=== PATIENT | female | born 1935 | race African-American/Black ===

== ENCOUNTER 2017-11-02 15:52 | Emergency (ER) | payer MEDICARE, MEDICAID ==
[~2017-11-02] VITALS: Ht 175.3 cm; Wt 89.4 kg
[~2017-11-02 15:52] MED LIST: AMLODIPINE BESY10 MG ORAL; ASPIR 8181 MG ORAL; ATORVASTATIN CA40 MG ORAL; BUPROPION HCL100 M1 ORAL; CELEXA20 MG ORAL; DONEPEZIL HCL10 M2 ORAL; HYDROCHLOROTHIA25 MG ORAL; METOPROLOL SUCC25 MG ORAL; NAMENDA XR21 MG PO; NAMENDA10 MG ORAL; PRAVASTATIN SOD80 M1 ORAL; RISPERIDONE0.5 MG PO; ZITHROMAX500 MG ORAL; vit d2 PO
[2017-11-02] MEDS ORDERED: Tetanus/Diptheria/Pertussis Vaccine 0.5ml Syr IM ONE (16:15)
--- NOTE | 2017-11-02 16:58 | Diagnostic Imaging Report ---
Indication: Altered mental status Technique: spiral acquisitions obtained through the brain. Angled axial and coronal 5 x 5 mm slices were reconstructed. No IV contrast utilized. Radiation dose was minimized using automated exposure control Total dose length product 1383 mGycm. CTDIvol(s) 70 mGy Comparison: none FINDINGS: No acute hemorrhage or edema. No mass effect or midline shift. There is age-related enlargement of the ventricles and extra axial CSF spaces. There is periventricular deep white matter ischemic change. Normal jenkins-white differentiation. Visualized orbits are unremarkable. There is minimal mucosal disease in the left maxillary sinus. Intact calvarium. Possible empty sella. No significant interim change IMPRESSION: Chronic and age-related changes. Negative for acute intracranial bleed or mass effect Incidental finding of left maxillary sinus disease, possible empty sella The CT scanner at [facility] is accredited by the [employer] and the scans are performed using protocols designed to limit radiation exposure to as low as reasonably achievable to attain images of sufficient resolution adequate for diagnostic evaluation
[2017-11-02] MEDS ORDERED: TYLENOL EXTRA500 MG ORAL (17:09)
[2017-11-02 17:15] VITALS: BP 126/82
--- NOTE | 2017-11-02 17:17 | Emergency Room Report ---
History of Present Illness General Chief Complaint: Head, Face, Neck Trauma Source: Patient, Family Member Present Illness HPI 82-year-old female presents ED status post head injury. Daughter at bedside states that today patient had a mechanical trip and fall hitting her head on the stair railing at home. Occurred approximately 30 minutes prior to arrival. No LOC. There is an abrasion to the top of the scalp. Patient states tetanus is unknown. Patient denies any photophobia or. Denies nausea or vomiting. Denies neck pain. Denies any other injuries. No other aggravating relieving factors. Denies any other associated symptoms Allergies: Coded Allergies: NO KNOWN DRUG ALLERGIES (Unverified Allergy, Unknown, 12/21/14) Patient History Past Medical History: DM, HTN, dementia Pertinent Family History: none Social History: Denies: smoking, alcohol use, drug use Now: No Immunizations: UTD Reviewed Nursing Documentation: PMH: Agreed, PSxH: Agreed Nursing Documentation-PMH Hx Hypertension: Yes Hx Diabetes: Yes - no medications taken for diabetes Hx Cancer: No Hx Gastrointestinal Problems: No Hx Neurological Problems: Yes - Alzheimer's Hx Dementia: Yes Hx Alzheimer's Disease: Yes Review of Systems All Other Systems: negative except mentioned in HPI Physical Exam Vital Signs Date Time Temp Pulse Resp B/P (MAP) Pulse Ox O2 Delivery O2 Flow Rate FiO2 11/02/17 15:58 97.9 70 18 128/84 95 Room Air Sp02 EP Interpretation: reviewed, normal General Appearance: no apparent distress, alert, GCS 15, non-toxic Head: normocephalic, other - abrasion to scalp Eyes: bilateral eye normal inspection, bilateral eye PERRL ENT: hearing grossly normal, normal pharynx, no angioedema, normal voice Neck: full range of motion, supple/symm/no masses Respiratory: chest non-tender, lungs clear, normal breath sounds, speaking full sentences Cardiovascular #1: regular rate, rhythm, no edema Cardiovascular #2: 2+ carotid (R), 2+ carotid (L), 2+ radial (R), 2+ radial (L) , 2+ dorsalis pedis (R), 2+ dorsalis pedis (L) Gastrointestinal: normal bowel sounds, non tender, soft, non-distended, no guarding, no rebound Rectal: deferred Genitourinary: normal inspection, no CVA tenderness Musculoskeletal: back normal, gait/station normal, normal range of motion, non- tender Neurologic: alert, oriented x3, responsive, motor strength/tone normal, sensory intact, speech normal Psychiatric: judgement/insight normal, memory normal, mood/affect normal, no suicidal/homicidal ideation Reflexes: 3+ bicep (R), 3+ bicep (L), 3+ tricep (R), 3+ tricep (L), 3+ knee (R) , 3+ knee (L) Skin: normal color, no rash, warm/dry, well hydrated Lymphatic: no adenopathy Medical Decision Making Diagnostic Impression: Primary Impression: Head injury Qualified Codes: S09.90XA - Unspecified injury of head, initial encounter ER Course Hospital Course 82-year-old F presents ED s/p head injury Differential diagnoses include: skull fx, intracranial injury, concussion Clinical course Patient placed on stretcher. After initial history and physical I ordered CT head and tetanus. scalp wound irrigated. CT head shows no acute process. reassurance given to patient/family Diagnosis - head injury Stable and discharged to home with Rx Tylenol. Followup with PMD. Return to ED if symptoms recur or worsen CT/MRI/US Diagnostic Results CT/MRI/US Diagnostic Results : Imaging Test Ordered: CT Head Impression no acute process Last Vital Signs Date Time Temp Pulse Resp B/P (MAP) Pulse Ox O2 Delivery O2 Flow Rate FiO2 11/02/17 15:58 97.9 70 18 128/84 95 Room Air Status: improved Disposition: HOME, SELF-CARE Condition: Stable Scripts Acetaminophen* (TYLENOL EXTRA STRENGTH*) 500 Mg Tablet 500 MG ORAL Q8H Y for Prn Headache/Temp > 101, #30 TAB 0 Refills Prov: CANDY DISLA M.D. 11/02/17 Patient Instructions: Head Injury, Adult, [id number] CANDY DISLA M.D. Nov 02, 2017 17:17
== END 2017-11-02 17:15 | disposition home or self-care (01) ==
LOC: EMR 16:30 → MERGE 16:30 → EMR 17:15
DX: S00.01XA Abrasion of scalp, initial encounter (principal); E11.9 Type 2 diabetes mellitus without complications; I10 Essential (primary) hypertension; G30.9 Alzheimer's disease, unspecified; F02.80 Dementia in other diseases classified elsewhere, unspecified severity, without behavioral disturbance, psychotic disturbance, mood disturbance, and anxiety; Z23 Encounter for immunization; W10.9XXA Fall (on) (from) unspecified stairs and steps, initial encounter; Y92.009 Unspecified place in unspecified non-institutional (private) residence as the place of occurrence of the external cause
CPT/HCPCS: 70450; 90471; 90715; 99284